=== PATIENT | female | born 1935 | race Hispanic/Latino ===

== ENCOUNTER 2016-12-07 14:32 | Emergency (ER) | payer MEDICARE, MEDICAID ==
[2016-12-07 14:33] VITALS: BMI 24.1
[2016-12-07 14:50] VITALS: O2SAT 99
--- NOTE | 2016-12-07 16:15 | C.PDOC ---
History Of Present Illness 81 y/o female presents to the ED complaining of intermittent right epistaxis x 5 days. She reports current episode since 12 pm. Denies trauma, fever, chest pain, shortness of breath, hemoptysis, or other complaints. INTERMIT R EPISTAXIS X 5 DAYS. CURRENT EPISODE SINCE 12 PM. NO TRAUMA. NO OTHER ASSOC SX. EXAM NOSE MILD ACTIVE OOZING R NARE. NO POST PHARYNGEAL BLOOD MDM PT OBSERVED TO BE DOING POOR TAMPONADE. PROPER INSTRUCTION GIVEN, WILL REASSESS AFTER 15 MINS CONT EXT TAMPONADE Chief Complaint (Nursing): ENT Problem History Per: Patient History/Exam Limitations: None Onset/Duration Of Symptoms: Hrs, Persistent Current Symptoms Are (Timing): Still Present Anticoagulant/Antiplatlet Use?: No Past Medical History Reviewed: Historical Data, Nursing Documentation, Vital Signs Vital Signs: Last Vital Signs Temp 98.4 F 12/07/16 14:43 Pulse 67 12/07/16 14:43 Resp 18 12/07/16 14:43 BP 91/66 L 12/07/16 14:43 Pulse Ox 99 12/07/16 16:39 - Medical History PMH: Anemia, Arthritis, Asthma, Fractures (Left clavicle), HTN, Hypercholesterolemia, Kidney Stones, Chronic Kidney Disease Surgical History: Endoscopy Family History: States: Unknown Family Hx - Social History Hx Tobacco Use: No Hx Alcohol Use: No Hx Substance Use: No - Immunization History Hx Tetanus Toxoid Vaccination: No Hx Influenza Vaccination: No Hx Pneumococcal Vaccination: No Review Of Systems Except As Marked, All Systems Reviewed And Found Negative. Constitutional: Negative for: Fever ENT: Positive for: Other (right epistaxis) Cardiovascular: Negative for: Chest Pain Respiratory: Negative for: Shortness of Breath, Hemoptysis Physical Exam - Physical Exam Appears: Non-toxic, No Acute Distress Skin: Normal Color, Warm, Dry Head: Atraumatic, Normacephalic Nose: Other (mild active oozing right nare) Oral Mucosa: Moist Throat: Normal, No Other (post pharyngeal blood) Neck: Normal ROM Chest: Symmetrical Cardiovascular: Rhythm Regular Respiratory: Normal Breath Sounds, No Rales, No Rhonchi, No Wheezing Extremity: Normal ROM Neurological/Psych: Oriented x3, Normal Speech, Normal Cognition ED Course And Treatment O2 Sat by Pulse Oximetry: 99 (ra) Pulse Ox Interpretation: Normal Reevaluation Time: 17:16 Reassessment Condition: Improved (EPISTAXIS RESOLVED. REQUESTING DC HOME, DOES NOT WISH NASAL TAMPONADE @ THIS TIME.) Medical Decision Making Medical Decision Making: Pt observed to be doing poor temponade. Proper instruction given, will reassess after 15 mins cont ext tamponade. Disposition Counseled Patient/Family Regarding: Diagnosis, Need For Followup - Disposition Referrals: Darnell Rutherford MD [Staff Provider] - [facility] [Outside] [facility] [Outside] Disposition: HOME/ ROUTINE Disposition Time: 17:16 Condition: IMPROVED Instructions: Nosebleed (ED) - Clinical Impression Clinical Impression: Epistaxis - Scribe Statement The provider has reviewed the documentation as recorded by the Scribe (Sheyla Zaidi) Provider Attestation: All medical record entries made by the Scribe were at my direction and personally dictated by me. I have reviewed the chart and agree that the record accurately reflects my personal performance of the history, physical exam, medical decision making, and the department course for this patient. I have also personally directed, reviewed, and agree with the discharge instructions and disposition.
[2016-12-07 18:30] VITALS: BP 102/61; PULSE 60; RESP 14; TEMP 97.8
== END 2016-12-07 18:29 | disposition home or self-care (01) ==
LOC: C.ER 14:32
DX: R04.0 Epistaxis (principal)